=== PATIENT | female | born 1980 | race American Indian/Alaskan Native ===

== ENCOUNTER 2018-11-09 03:17 | Inpatient (IN) | payer MEDICAID ==
[2018-11-09] MEDS ORDERED: D5W IV ONE (03:36)
[2018-11-09] MEDS ORDERED: RETROVIR IV ONE (03:36)
[2018-11-09 03:37] LABS: Hematocrit 34.8 % (30.3-42.9); Mean Corpuscular HGB Conc 35 % (30-34); Mean Corpuscular Volume 91 fl (79-97); Platelet Count 118 K/mm3 (140-440); Red Blood Count 3.81 M/mm3 (3.65-5.03); Red Cell Distribution Width 15.4 % (13.2-15.2)
[2018-11-09] MEDS ORDERED: BRETHINE IVP PRN (03:38)
[2018-11-09] MEDS ORDERED: MINERAL OIL PO PRN (03:38)
[2018-11-09] MEDS ORDERED: XYLOCAINE 2% INFILTRATI ONE (03:38)
[2018-11-09] MEDS ORDERED: STADOL IV PRN (03:38)
[2018-11-09] MEDS ORDERED: SUBLIMAZE IV PRN (03:38)
[2018-11-09] MEDS ORDERED: BRETHINE SUB-Q PRN (03:38)
[2018-11-09] MEDS ORDERED: PITOCin/NS 20 UNIT/1000ML DRIP 20 UNITS/1,000 ML BAG IV SCH ×2 (04:00→18:00)
[2018-11-09] MEDS ORDERED: LACTATED RINGERS 1,000 ML IV SCH (04:00)
--- NOTE | 2018-11-09 04:05 | History and Physical Report ---
History of Present Illness Date of examination: 11/09/18 Date of admission: 11/09/18 Chief complaint: Contractions and bleeding History of present illness: 38yo G 1 P 0 0 0 0 @ 37 weeks 6 days here with c/o contractions and bleeding. She reports +FMs but denies LOF. I received a call from RN that the patient is completely dilated. Upon my arrival, moderate bloody show present. Was unable to confirm cervical dilation due to patient discomfort and cervical exam int olerance. Epidural anesthesia given and patient was confirmed to be 4cm/90%/- 2/BBOW. She is a [employer] pt who initiated care at 17 weeks gestation. 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 She denies any recent outbreak or prodromal symptoms. LABS: B+, Pap smear normal, RI, VDRL NR, HBsAg neg, HIV pos, HSV II +, MSAFP neg, Diabetes screen 113, Antibody screen pos, GC/CT/Trich neg, GBS neg. Past History Past Medical History: no pertinent history Past Surgical History: appendectomy [employer] History: herpes, HIV Family/Genetic History: none Social history: , lives with family, full code. denies: smoking, alcohol abuse, prescription drug abuse, IV drug use - Obstetrical History Expected Date of Delivery: 11/24/18 Actual Gestation: 37 Week(s) 6 Day(s) : 1 Para: 0 Hx # Term Pregnancies: 0 Number of Pregnancies: 0 Spontaneous Abortions: 0 Induced : 0 Number of Living Children: 0 Medications and Allergies Allergies Allergy/AdvReac Type Severity Reaction Status Date / Time No Known Allergies Allergy Unverified 11/09/18 03:28 Active Meds: Active Medications Butorphanol Tartrate (Stadol) 2 mg IV Q2H PRN PRN Reason: Pain , Severe (7-10) Ephedrine Sulfate (Ephedrine Sulfate) 10 mg IV Q2M PRN PRN Reason: Hypotension Fentanyl (Sublimaze) 100 mcg IV Q2H PRN PRN Reason: Labor Pain Zidovudine 165 mg/ Dextrose 116.5 mls @ 120 mls/hr IV ONCE ONE Stop: 11/09/18 04:34 Zidovudine 400 mg/ Dextrose 200 mls @ 41.25 mls/hr IV DIRECT VICKI Lactated Ringer's (Lactated Ringers) 1,000 mls @ 125 mls/hr IV DIRECT VICKI Lactated Ringer's (Lactated Ringers) 1,000 mls @ 125 mls/hr IV DIRECT VICKI Oxytocin/Sodium Chloride (Pitocin/Ns 20 Unit/1000ml Drip) 20 units in 1,000 mls @ 125 mls/hr IV DIRECT VICKI Lidocaine (Xylocaine 2%) 20 ml INFILTRATI ONCE ONE Stop: 11/09/18 03:39 Mineral Oil (Mineral Oil) 30 ml PO QHS PRN PRN Reason: Constipation Terbutaline Sulfate (Brethine) 0.25 mg SUB-Q ONCE PRN PRN Reason: Hyperstimulation/Hypertonicity Terbutaline Sulfate (Brethine) 0.25 mg IVP ONCE PRN PRN Reason: Hyperstimulation/Hypertonicity Review of Systems All systems: negative - Obstetrical FHR: auscultation normal FHR comments: baseline 130, moderate variability, 15x15 accels, no decels Uterine Contraction Monitor Mode: External Uterine Contraction Pattern: Regular Results Result Diagrams: 11/09/18 03:25 Abnormal lab results 11/09/18 Range/Units 03:25 MCHC 35 H (30-34) % RDW 15.4 H (13.2-15.2) % Plt Count 118 L (140-440) K/mm3 All other labs normal. Assessment and Plan - Patient Problems (1) 37 weeks gestation of Current Visit: Yes Status: Acute (2) Active labor at term Current Visit: Yes Status: Acute Plan to address problem: Admit to L&D with routine labor orders Expectant management Anticipate vaginal delivery (3) HIV disease affecting in third trimester Current Visit: Yes Status: Acute Plan to address problem: AZT initiated, per protocol
[2018-11-09] MEDS: RETROVIR 400 MG in D5W 160 ML IV SCH ×3 (04:56→15:16)
[2018-11-09] MEDS ORDERED: MARCAINE 0.25% INFILTRATI ONE (04:56)
[2018-11-09] MEDS ORDERED: fentaNYL-BUPIV 2 MCG/ML-0.125% 200 MCG/100 ML BAG EPIDURAL ONE (05:41)
--- NOTE | 2018-11-09 05:50 | Anesthesia Consultation ---
Anesthesia Consult and Med Hx - Airway Anesthetic Teeth Evaluation: Good ROM Head & Neck: Adequate Mental/Hyoid Distance: Adequate Mallampati Class: Class II Intubation Access Assessment: Probably Good - Pulmonary Exam CTA: Yes - Cardiac Exam Cardiac Exam: RRR - Pre-Operative Health Status ASA Pre-Surgery Classification: ASA3 Proposed Anesthetic Plan: Epidural - Pulmonary Hx Smoking: No Hx Asthma: No Hx Respiratory Symptoms: No SOB: No COPD: No Home Oxygen Therapy: No Hx Pneumonia: No Hx Sleep Apnea: No - Cardiovascular System Hx Hypertension: No Hx Coronary Artery Disease: No Hx Heart Attack/AMI: No Hx Angina: No Hx Percutaneous Transluminal Coronary Angioplasty (PTCA): No Hx Cardia Arrhythmia: No Hx Pacemaker: No Hx Internal Defibrillator: No Hx Valvular Heart Disease: No Hx Heart Murmur: No Hx Peripheral Vascular Disease: No - Central Nervous System Hx Neuromuscular Disorder: No Hx Seizures: No CVA: No Hx Back Pain: No Hx Psychiatric Problems: No - Gastrointestinal Hx Ulcer: No Hx Gastroesophageal Reflux Disease: No - Endocrine Hx Renal Disease: No Hx End Stage Renal Disease: No Hx Cirrhosis: No Hx Liver Disease: No Hx Insulin Dependent Diabetes: No Hx Non-Insulin Dependent Diabetes: No Hx Thyroid Disease: No Hx Hypothyroidism: No Hx Hyperthyroidism: No - Hematic Hx Anemia: No (HIV positive) Hx Sickle Cell Disease: No - Other Systems Hx Alcohol Use: No Hx Substance Use: No Hx Cancer: No Hx Obesity: No - Additional Comments Anesthesia Medical History Comments: Pt on antivirals
[2018-11-09] MEDS ORDERED: NARCAN 2 MG/2 ML IV PRN (05:52)
[2018-11-09] MEDS: fentaNYL-BUPIV 2 MCG/ML-0.125% 200 MCG/100 ML BAG EPIDURAL SCH ×2 (06:03→13:44)
[2018-11-09] MEDS: LACTATED RINGERS 1,000 ML IV SCH ×2 (06:09→13:43)
[2018-11-09] MEDS ORDERED: PITOCin/NS 30 UNIT/500ML 30 UNITS/500 ML BAG IV ONE (09:00)
--- NOTE | 2018-11-09 10:53 | Progress Note ---
Assessment and Plan (1) 37 weeks gestation of Current Visit: Yes Status: Acute (2) Active labor at term Current Visit: Yes Status: Acute Plan to address problem: Routine labor orders Expectant management Anticipate vaginal delivery VSS Category 1 tracing Comfortable with Epidural (3) HIV disease affecting in third trimester Current Visit: Yes Status: Acute Plan to address problem: Co-managed with [facility] and ID. Pt reports last HIV RNA viral load was "undetectable; about 4 weeksago" Truvanda & Isentress Antivirals AZT per protocol Draw HIV RNA Subjective - Subjective Date of service: 11/09/18 Principal diagnosis: IUP at 37w6d, active labor, HIV positive Interval history: See H&P Patient reports: movement normal, contractions, no loss of fluid Objective - Vital Signs Vital Signs: Vital Signs - 12hr 11/09/18 11/09/18 11/09/18 05:02 05:03 05:07 Temperature Pulse Rate 87 100 H 85 Respiratory Rate Blood Pressure 162/106 142/80 Blood Pressure [Left] O2 Sat by Pulse 100 100 Oximetry 11/09/18 11/09/18 11/09/18 05:08 05:11 05:12 Temperature Pulse Rate 88 82 87 Respiratory Rate Blood Pressure 143/76 136/69 129/70 Blood Pressure [Left] O2 Sat by Pulse 100 Oximetry 11/09/18 11/09/18 11/09/18 05:15 05:16 05:17 Temperature Pulse Rate 81 81 82 Respiratory Rate Blood Pressure 136/73 127/69 Blood Pressure [Left] O2 Sat by Pulse 100 Oximetry 11/09/18 11/09/18 11/09/18 05:18 05:22 05:23 Temperature Pulse Rate 78 88 96 H Respiratory Rate Blood Pressure 126/70 140/68 144/65 Blood Pressure [Left] O2 Sat by Pulse 100 Oximetry 11/09/18 11/09/18 11/09/18 05:27 05:29 05:32 Temperature Pulse Rate 95 H 90 85 Respiratory Rate Blood Pressure 118/58 Blood Pressure [Left] O2 Sat by Pulse 100 100 Oximetry 11/09/18 11/09/18 11/09/18 05:33 05:37 05:42 Temperature Pulse Rate 86 85 81 Respiratory Rate Blood Pressure 115/60 Blood Pressure [Left] O2 Sat by Pulse 100 100 Oximetry 11/09/18 11/09/18 11/09/18 05:47 05:52 05:57 Temperature Pulse Rate 81 76 89 Respiratory Rate Blood Pressure Blood Pressure [Left] O2 Sat by Pulse 99 99 100 Oximetry 11/09/18 11/09/18 11/09/18 05:59 06:02 06:06 Temperature 96.7 F L Pulse Rate 79 77 80 Respiratory 18 Rate Blood Pressure 111/59 Blood Pressure 111/59 [Left] O2 Sat by Pulse 100 100 Oximetry 11/09/18 11/09/18 11/09/18 06:07 06:12 06:17 Temperature Pulse Rate 78 81 92 H Respiratory Rate Blood Pressure Blood Pressure [Left] O2 Sat by Pulse 100 100 100 Oximetry 11/09/18 11/09/18 11/09/18 06:18 06:22 06:27 Temperature Pulse Rate 86 88 76 Respiratory Rate Blood Pressure 106/55 Blood Pressure [Left] O2 Sat by Pulse 100 100 Oximetry 11/09/18 11/09/18 11/09/18 06:32 06:33 06:37 Temperature Pulse Rate 76 72 83 Respiratory Rate Blood Pressure 100/58 Blood Pressure [Left] O2 Sat by Pulse 100 100 Oximetry 11/09/18 11/09/18 11/09/18 06:42 06:47 06:48 Temperature Pulse Rate 71 76 75 Respiratory Rate Blood Pressure 97/55 Blood Pressure [Left] O2 Sat by Pulse 100 100 Oximetry 11/09/18 11/09/18 11/09/18 06:52 06:57 07:02 Temperature Pulse Rate 71 70 74 Respiratory Rate Blood Pressure Blood Pressure [Left] O2 Sat by Pulse 100 100 100 Oximetry 11/09/18 11/09/18 11/09/18 07:04 07:07 07:12 Temperature Pulse Rate 71 75 79 Respiratory Rate Blood Pressure 98/54 Blood Pressure [Left] O2 Sat by Pulse 100 100 Oximetry 11/09/18 11/09/18 11/09/18 07:17 07:18 07:22 Temperature Pulse Rate 89 87 80 Respiratory Rate Blood Pressure 96/59 Blood Pressure [Left] O2 Sat by Pulse 100 100 Oximetry 11/09/18 11/09/18 11/09/18 07:27 07:32 07:34 Temperature Pulse Rate 86 81 95 H Respiratory Rate Blood Pressure 108/61 Blood Pressure [Left] O2 Sat by Pulse 100 100 Oximetry 04/04/2111/09/18 11/09/18 07:37 07:42 07:47 Temperature Pulse Rate 92 H 80 84 Respiratory Rate Blood Pressure Blood Pressure [Left] O2 Sat by Pulse 100 100 100 Oximetry 11/09/18 11/09/18 11/09/18 07:50 07:52 07:57 Temperature Pulse Rate 75 77 71 Respiratory Rate Blood Pressure 121/63 Blood Pressure [Left] O2 Sat by Pulse 100 100 Oximetry 11/09/18 11/09/18 11/09/18 08:02 08:03 08:07 Temperature Pulse Rate 77 75 70 Respiratory Rate Blood Pressure 110/58 Blood Pressure [Left] O2 Sat by Pulse 100 100 Oximetry 11/09/18 11/09/18 11/09/18 08:12 08:17 08:19 Temperature Pulse Rate 81 71 69 Respiratory Rate Blood Pressure 108/58 Blood Pressure [Left] O2 Sat by Pulse 100 100 Oximetry 11/09/18 11/09/18 11/09/18 08:22 08:27 08:32 Temperature Pulse Rate 75 78 79 Respiratory Rate Blood Pressure Blood Pressure [Left] O2 Sat by Pulse 100 100 100 Oximetry 11/09/18 11/09/18 11/09/18 08:33 08:37 08:40 Temperature 96.3 F L Pulse Rate 82 85 Respiratory Rate Blood Pressure 107/59 Blood Pressure [Left] O2 Sat by Pulse 100 Oximetry 11/09/18 11/09/18 11/09/18 08:42 08:47 08:49 Temperature Pulse Rate 80 74 79 Respiratory Rate Blood Pressure 140/123 Blood Pressure [Left] O2 Sat by Pulse 100 100 Oximetry 11/09/18 11/09/18 11/09/18 08:52 08:57 09:02 Temperature Pulse Rate 76 75 76 Respiratory Rate Blood Pressure Blood Pressure [Left] O2 Sat by Pulse 100 100 100 Oximetry 11/09/18 11/09/18 11/09/18 09:04 09:07 09:12 Temperature Pulse Rate 84 78 69 Respiratory Rate Blood Pressure Blood Pressure [Left] O2 Sat by Pulse 94 100 100 Oximetry 11/09/18 11/09/18 11/09/18 09:17 09:18 09:22 Temperature Pulse Rate 74 71 86 Respiratory Rate Blood Pressure 107/59 Blood Pressure [Left] O2 Sat by Pulse 100 100 Oximetry 11/09/18 11/09/18 11/09/18 09:27 09:32 09:33 Temperature Pulse Rate 86 70 71 Respiratory Rate Blood Pressure 100/54 Blood Pressure [Left] O2 Sat by Pulse 100 100 Oximetry 11/09/18 11/09/18 11/09/18 09:37 09:42 09:47 Temperature Pulse Rate 78 75 79 Respiratory Rate Blood Pressure 100/56 Blood Pressure [Left] O2 Sat by Pulse 100 100 100 Oximetry 11/09/18 11/09/18 11/09/18 09:52 09:57 09:59 Temperature Pulse Rate 75 82 Respiratory Rate Blood Pressure Blood Pressure [Left] O2 Sat by Pulse 100 100 92 Oximetry 11/09/18 11/09/18 11/09/18 10:02 10:04 10:07 Temperature Pulse Rate 78 81 83 Respiratory Rate Blood Pressure 98/51 Blood Pressure [Left] O2 Sat by Pulse 100 100 Oximetry 11/09/18 11/09/18 11/09/18 10:12 10:17 10:19 Temperature Pulse Rate 78 85 96 H Respiratory Rate Blood Pressure 100/56 Blood Pressure [Left] O2 Sat by Pulse 100 100 Oximetry 11/09/18 11/09/18 11/09/18 10:22 10:27 10:32 Temperature Pulse Rate 93 H 84 95 H Respiratory Rate Blood Pressure Blood Pressure [Left] O2 Sat by Pulse 100 100 100 Oximetry 11/09/18 11/09/18 11/09/18 10:37 10:42 10:47 Temperature Pulse Rate 77 91 H 84 Respiratory Rate Blood Pressure Blood Pressure [Left] O2 Sat by Pulse 100 100 100 Oximetry - Exam Cardiovascular: Regular rate, Normal S1, Normal S2, No murmurs Lungs: Clear to auscultation, Normal air movement Abdomen: Present: normal appearance, soft, normal bowel sounds. Absent: distention Vulva: both: normal Uterus: Present: other (Gravid) Uterine Contraction Monitor Mode: External Cervical Dilatation: 4 (Per Nurse) Cervical Effacement Percentage: 90 station: -1 Uterine Contraction Pattern: Regular Uterine Tone Measurement Phase: Resting Uterine Contraction Intensity: Moderate Extremities: normal Deep Tendon Reflex Grade: Normal +2 - Labs Labs: Abnormal Labs 11/09/18 03:25 MCHC 35 H RDW 15.4 H Plt Count 118 L Laboratory Results - last 24 hr 11/09/18 11/09/18 03:25 03:25 WBC 4.7 RBC 3.81 Hgb 12.0 Hct 34.8 MCV 91 MCH 32 MCHC 35 H RDW 15.4 H Plt Count 118 L Blood Type B POSITIVE Antibody Screen TNR MEGHANA Antibody Screen Negative
--- NOTE | 2018-11-09 12:45 | Event Note ---
Notified of patient on L&D laboring. Patient is HIV(+) with undetectable HIV RNA viral load as of 10/2018. Chart reviewed. Came to evaluate patient and doses of zidovudine ordered and given. Loading dose given Zidovudine 165mg IV x 1 and maintenance dose 41.25ml per hour maintenance dose given on previous shift. Doses verified with pharmacist, Mirela this morning. Patient is comfortable in bed having regular contractions Q 2-3 min. Vitals Vital Signs Temp 96.3 F L 11/09/18 08:40 Pulse 81 11/09/18 12:37 Resp 18 11/09/18 06:06 BP 115/57 11/09/18 12:34 Pulse Ox 100 11/09/18 12:37 FHT Category II heart tracing PE: No vulvar or vaginal vesicular lesions noted Cervix: /-1 Pitocin 3 Zidovudine infusing Epidural in place A/P (10/15/18) HIV RNA viral load not detected by [facility] (07/2018) HIV RNA viral load 3550 HIV RNA viral load drawn today HSV 2 - no lesions on physical exam Plan 1. Patient restarted on oral anti-retroviral medicine as recommended by ACOG. 2. Dosing of AZT 1mg/kg and maintenance 2mg/kg given and in progress 3. Last viral load drawn by outside clinic discussed with patient. Viral load also drawn today patient offered an elective section but declined. 4. Anticipate spontaneous vaginal delivery
[2018-11-09] MEDS ORDERED: EMTRIVA PO SCH (14:00)
[2018-11-09] MEDS ORDERED: EMTRIVA 200 MG, VIREAD 300 MG PO SCH (14:00)
[2018-11-09] MEDS: VIREAD PO SCH (14:04)
[2018-11-09] MEDS ORDERED: REGLAN ONE (15:57)
[2018-11-09] MEDS ORDERED: PEPCID IV ONE ×2 (15:58→17:31)
[2018-11-09] MEDS ORDERED: BICITRA ONE (15:58)
[2018-11-09] MEDS ORDERED: ANCEF/STERILE WATER 2 GM/20 ML 2 GM/20 ML SYRINGE IV ONE (15:59)
[2018-11-09] MEDS ORDERED: ANCEF/STERILE WATER 2 GM/20 ML IV ONE (16:01)
[2018-11-09] MEDS ORDERED: SUBLIMAZE ONE (16:09)
[2018-11-09] MEDS ORDERED: DIPRIVAN 10 MG/ML IV ONE (16:10)
[2018-11-09] MEDS ORDERED: TORADOL ONE (17:20)
[2018-11-09] MEDS ORDERED: PHENERGAN PO PRN (17:29)
[2018-11-09] MEDS ORDERED: ZOFRAN IV PRN (17:29)
[2018-11-09] MEDS ORDERED: NARCAN 0.4 MG/1 ML IV PRN (17:29)
[2018-11-09] MEDS ORDERED: DILAUDID IV PRN (17:29)
[2018-11-09] MEDS ORDERED: PHENERGAN PR PRN (17:29)
--- NOTE | 2018-11-09 17:29 | Anesthesia Day of Surgery ---
Anesthesia Day of Surgery - Day of Surgery Patient Examined: Yes Patient H&P Reviewed: Yes Patient is NPO: Yes Beta Blockers: No Cardiac Clearance: No Pulmonary Clearance: No Gerardo's Test: N/A
--- NOTE | 2018-11-09 17:29 | Post Anesthesia Evaluation ---
- Post Anesthesia Evaluation Patient Participated: Yes Airway Patent: Yes Stable Respiratory Function: Yes Nausea/Vomiting: No Temp > 96.8F: Yes Pain Manageable: Yes Adequeate Hydration: Yes Anesthesia Complications: No Block Receding Appropriately: Yes Patient on Ventilator: No
[2018-11-09] MEDS ORDERED: BICITRA PO ONE (17:31)
[2018-11-09] MEDS ORDERED: REGLAN IV ONE (17:31)
[2018-11-09] MEDS ORDERED: IBUPROFEN PO PRN (17:33)
[2018-11-09] MEDS ORDERED: LANSINOH TP PRN (17:33)
[2018-11-09] MEDS ORDERED: PERCOCET 5/325 PO PRN (17:33)
[2018-11-09] MEDS ORDERED: TUCKS PAD TP PRN (17:33)
[2018-11-09] MEDS ORDERED: TYLENOL PO PRN (17:33)
--- NOTE | 2018-11-09 17:49 | Operative Report ---
Operative Report Operative Report: DATE OF OPERATION 11/09/18 PREOP Diagnosis 1. 38 1/7 weeks gestation 2. Nonreassurring heart status 3. Category III heart tracing 4. Human immunodeficiency virus Postop Diagnosis 1. 38 1/7 weeks gestation 2. Nonreassurring heart status 3. Category III heart tracing 4. Human immunodeficiency virus 5. Small for gestational age Procedure: 1. Primary section Findings 1. Viable female in the compound presentation (hand and vertex), weighing 5lb 7oz, 2465g APGARS 8 at 1 min, 9 at 5 min 2. Nuchal cord x 1 3. Normal uterus, bilateral ovaries and tubes Surgeon 1. Judie Collado MD Anesthesia: 1. Epidural I/O: EBL: 500ml IVF 1000ml LR UOP 100ml - clear Specimens removed: 1. Placenta Complications: none Disposition: Patient taken to recovery room in stable condition INDICATIONS: The patient is a 38yo at 38 1/7weeks that was undergoing augmentation of labor. At the second state of labor she pushed for 2 hours without delivery of the vertex. bradycardia 70-90s were noted. I explained to patient I did not desire to perform an operative delivery due to risk of scalp lacerations and with risk of maternal blood transfer. Therefore due to bradycardia a recommendation of primary section was made for distress. The risks including but not limited to bleeding, infections, injury to surrounding organs, risk of blood transfusion and hysterectomy were discussed. All questions were answered and informed consent signed. PROCEDURE: The patient was taken to OR 2 in stable condition. Adequate anesthesia was achieved with epidural anesthesia. heart tones were confirmed in the OR 90s-108. A boggs catheter was placed. She wore SCDs for DVT prophylaxis. And received Ancef for infection prophylaxis. The patient was prepped and draped in the usual fashion and an additional time out was done. A Pfannestiel incision was made in the skin and carried down to the fascia. The fascia was incised and the incision extended laterally. The superior and inferior aspect of the rectus muscle was dissected off of the fascia. Entry into the peritoneum was achieved and the incision was extended cranially and caudally. The bladder blad was placed. A low-transverse incision made made in the uterus and extended laterally. membranes were ruptured, noted to be clear. The head was delivered and noted to be in compound presentation. Nuchal cord x 1 was reduced. The body delivered. Infant was bulb suctioned, cord clamped x2 and handed off to awaiting disability insurance hearing officer staff. The baby was noted to be vigorous. The was taken to the NICU for further evaluation after a short mo ther/baby bonding period. The placenta was delivered intact. Cord gasses were collected. 20 units of IV Pitocin was added to LR fluids. The uterus was cleaned of all clots. The hysterotomy was repaired with 0-Vicryl in a running, locked stitch and an imbricating layer of the same suture was used. The peritoneum and rectus muscle was re-approximated with 2-0Vicryl. Fascia was closed with 0 Vicryl. The Subcutaneous layer reapproximated with 2-0 Vicryl and the skin was then closed with 4-0 Vicryl. The patient tolerated the procedure well. All counts were correct x 3. Urine was noted to be clear at close of case. I was present and scrubbed for the entire procedure. The patient was taken to the recovery room in stable condition.
[2018-11-09] MEDS ORDERED: ANCEF/STERILE WATER 2 GM/20 ML 2 GM/20 ML SYRINGE IV NR (18:00)
[2018-11-09] MEDS ORDERED: SODIUM CHLORIDE FLUSH SYRINGE 10 ML IV NR ×2 (18:00)
[2018-11-10] MEDS: ISENTRESS PO SCH ×2 (01:24→09:40)
--- NOTE | 2018-11-10 01:56 | Event Note ---
No NSAIDs are to be administered to patient due to risk of nephrotoxicity when combined with antiretroveral therapy. Therefore Ibuprofen and Toradol have been discontinued.
[2018-11-10] MEDS: LACTATED RINGERS 1,000 ML IV SCH (05:36)
[2018-11-10] MEDS: PERCOCET 5/325 PO PRN ×3 (06:30→22:06)
[2018-11-10 08:41] LABS: Hematocrit 31.1 % (30.3-42.9)
[2018-11-10] MEDS: FEOSOL PO SCH (09:41)
[2018-11-10] MEDS: MYLICON PO PRN ×2 (09:41→15:50)
--- NOTE | 2018-11-10 10:11 | Progress Note ---
Assessment and Plan A: POD#1 HIV + P: Follow Routine PosOp Orders Continue MD macdonald of HIV Encourage increased ambulation Subjective - Subjective Date of service: 11/10/18 Principal diagnosis: IUP at 37w6d, active labor, HIV positive Patient reports: appetite normal, voiding normally, pain well controlled, ambulating normally : doing well Objective - Vital Signs Latest vital signs: Vital Signs Temp Pulse Resp BP BP Pulse Ox 11/10/18 07:47 97.1 F L 70 18 111/63 11/10/18 06:30 18 11/10/18 01:47 20 11/10/18 00:27 98.0 F 75 16 126/71 98 11/09/18 20:01 98.7 F 69 18 169/91 98 11/09/18 18:55 98.8 F 73 127/74 11/09/18 18:15 98.0 F 74 16 159/80 100 11/09/18 18:00 70 18 135/81 100 11/09/18 17:45 71 19 146/77 100 11/09/18 17:30 79 19 101/65 100 11/09/18 17:25 73 17 123/69 99 11/09/18 17:20 84 13 106/63 99 11/09/18 17:15 98.3 F 84 13 122/55 100 11/09/18 15:54 95 H 100 11/09/18 15:49 84 100 11/09/18 15:48 59 L 58 L 11/09/18 15:43 76 81 L 11/09/18 15:39 64 65 L 11/09/18 15:38 80 100 11/09/18 15:34 93 H 137/60 11/09/18 15:33 90 11/09/18 15:32 64 91 11/09/18 15:28 75 100 11/09/18 15:24 108 H 89 11/09/18 15:23 71 100 11/09/18 15:18 61 74 L 11/09/18 15:13 71 100 11/09/18 15:09 84 89 11/09/18 15:08 70 96 11/09/18 15:03 92 H 89 11/09/18 15:02 60 89 11/09/18 14:58 88 100 11/09/18 14:54 64 89 11/09/18 14:52 82 100 11/09/18 14:49 78 121/58 11/09/18 14:48 74 L 11/09/18 14:47 69 80 L 11/09/18 14:42 120 H 49 L 11/09/18 14:37 87 100 11/09/18 14:36 74 73 L 11/09/18 14:32 76 142/85 100 11/09/18 14:29 99 H 75 L 11/09/18 14:27 73 100 11/09/18 14:24 76 49 L 11/09/18 14:22 90 97 11/09/18 14:18 64 134/75 11/09/18 14:17 75 100 11/09/18 14:16 93 H 94 11/09/18 14:12 71 100 11/09/18 14:07 83 100 11/09/18 14:03 76 110/57 11/09/18 14:02 80 100 11/09/18 13:57 75 100 11/09/18 13:52 75 100 11/09/18 13:49 73 109/64 11/09/18 13:47 74 100 11/09/18 13:42 76 100 11/09/18 13:37 77 100 11/09/18 13:35 74 104/64 11/09/18 13:32 74 100 11/09/18 13:30 98.3 F 11/09/18 13:27 82 100 11/09/18 13:22 77 100 11/09/18 13:18 72 109/59 11/09/18 13:17 86 100 11/09/18 13:12 84 100 11/09/18 13:07 78 100 11/09/18 13:03 80 99/56 11/09/18 13:02 80 100 11/09/18 12:57 81 100 11/09/18 12:52 79 100 11/09/18 12:48 78 117/70 11/09/18 12:47 79 100 11/09/18 12:42 80 100 11/09/18 12:37 81 100 11/09/18 12:34 78 115/57 11/09/18 12:32 80 100 11/09/18 12:27 88 100 11/09/18 12:22 88 100 11/09/18 12:18 81 108/59 11/09/18 12:17 82 100 04/09/19 12:12 84 100 11/09/18 12:07 88 100 11/09/18 12:04 100 H 114/55 11/09/18 12:02 87 100 11/09/18 11:57 80 100 11/09/18 11:52 80 100 11/09/18 11:49 85 95/54 11/09/18 11:47 86 100 11/09/18 11:42 95 H 100 11/09/18 11:37 86 100 11/09/18 11:34 77 113/59 11/09/18 11:32 82 100 11/09/18 11:27 94 H 100 11/09/18 11:22 84 99 11/09/18 11:18 81 102/54 11/09/18 11:17 83 100 11/09/18 11:12 85 99 11/09/18 11:07 79 100 11/09/18 11:02 82 102/59 100 11/09/18 10:57 85 100 11/09/18 10:52 95 H 100 11/09/18 10:48 96 H 103/59 11/09/18 10:47 84 100 11/09/18 10:42 91 H 100 11/09/18 10:37 77 100 11/09/18 10:32 95 H 100 11/09/18 10:27 84 100 11/09/18 10:22 93 H 100 11/09/18 10:19 96 H 100/56 11/09/18 10:17 85 100 11/09/18 10:12 78 100 Intake and Output 11/09/18 11/10/18 11/10/18 22:59 06:59 14:59 Intake Total 2800 480 Output Total 1000 1600 Balance 1800 -1600 480 Intake: IV 2800 Lactated Ringers 1,000 ml 1000 @ 125 mls/hr IV DIRECT VICKI Rx#:[id number] Retrovir 400 mg In D5w 200 160 ml @ 1 MG/KG/HR 41.25 mls/hr IV DIRECT VICKI Rx#:[id number] Oral 480 Output: Urine 1000 1600 Indwelling Catheter 900 1600 Other: Total, Intake Amount 480 Total, Output Amount 900 700 Estimated Blood Loss 500 - Exam Breasts: Present: normal Cardiovascular: Present: Regular rate Lungs: Present: Clear to auscultation, Normal air movement Abdomen: Present: normal appearance, soft, normal bowel sounds Uterus: Present: normal, firm, fundal height below umbilicus Extremities: Present: normal Incision: Present: dry, dressed - Labs Labs: Abnormal lab results 11/09/18 Range/Units 16:39 POC ABG pH 7.271 L (7.35-7.45) POC ABG pCO2 54.0 H (35-45)
[2018-11-10] MEDS: MILK OF MAGNESIA PO PRN (15:50)
[2018-11-10] MEDS: VIREAD PO SCH (16:24)
[2018-11-11] MEDS: PERCOCET 5/325 PO PRN ×3 (06:24→19:51)
--- NOTE | 2018-11-11 09:59 | Progress Note ---
Assessment and Plan A: POD#2 s/p Primary c/s HIV positive; undetectable viral load; Isentress 400mg BID, Emtriva 200mg QD Stable Pain well controlled P: Follow Routine Post Op Orders Encourage increased ambulation Discharge home in am Continue care with Infectious Disease Subjective - Subjective Date of service: 11/11/18 Principal diagnosis: POD#2 s/p Primary c/s, HIV positive (RNA viral load; undetectable) Interval history: See H&P and delivery note Patient reports: appetite normal, voiding normally, pain well controlled, flatus, ambulating normally, no bowel movement Varnell: doing well, bottle feeding Objective - Vital Signs Latest vital signs: Vital Signs Temp Pulse Resp BP 11/11/18 08:09 98.3 F 73 18 139/86 11/11/18 06:24 18 11/10/18 22:06 18 11/10/18 15:19 98.9 F 71 18 129/75 11/10/18 12:32 98.2 F 72 18 146/82 Intake and Output 11/10/18 11/11/18 11/11/18 23:59 07:59 15:59 Intake Total 480 Balance 480 Intake: Oral 480 Other: Total, Intake Amount 480 - Exam Breasts: Present: normal Cardiovascular: Present: Regular rate, Normal S1, Normal S2, No murmurs Lungs: Present: Clear to auscultation, Normal air movement Abdomen: Present: normal appearance, soft, tenderness (as expected post-op), normal bowel sounds. Absent: distention Vulva: both: normal Uterus: Present: firm, fundal height below umbilicus (-1) Extremities: Present: normal Incision: Present: normal, dry, intact, dressed (Pressure dressing CDI)
--- NOTE | 2018-11-11 10:03 | Discharge Summary ---
Providers - Providers Date of Admission: 11/09/18 05:48 Date of discharge: 11/12/18 Attending physician: INDIANA RICK MD Primary care physician: INDIANA RICK MD Hospitalization Reason for admission: active labor, IUP at term Delivery: Procedure: primary low transverse Procedure details: See H&P and delivery note Incision: normal, dry, intact, dressed (CDI) Other procedures: none complications: none Discharge diagnosis: IUP at term delivered Mobile baby: male Condition at discharge: Good Disposition: [id number] TO HOME OR SELFCARE Plan - Discharge Medications Prescriptions: Ferrous Sulfate [Feosol 325 MG tab] 325 mg PO BID 30 Days #60 tablet oxyCODONE /ACETAMINOPHEN [Percocet 5/325] 1 tab PO Q4HR PRN 14 Days #30 tab PRN Reason: Pain , Severe (7-10) - Provider Discharge Summary Activity: routine, no sex for 6 weeks, no heavy lifting 4 weeks, no strenuous exercise Diet: routine Instructions: routine Additional instructions: [] Smoking cessation referral if applicable(refer to patient education folder for contact #) [] Refer to [facility] Booklet Call your doctor immediately for: * Fever > 100.5 * Heavy vaginal bleeding ( >1 pad per hour) * Severe persistent headache * Shortness of breath * Reddened, hot, painful area to leg or breast * Drainage or odor from incision. * Keep incision clean and dry at all times and follow doctor's instructions regarding bathing/showering Continue medications (Isentress 400mg BID, Emitriva 200mg QD). Follow up with Infectious Disease for continue management of HIV. Return to the office in 1 week for incision check. - Follow up plan Follow up: INDIANA RICK MD [Primary Care Provider] - 7 Days
[2018-11-11] MEDS: MYLICON PO PRN (11:21)
[2018-11-11] MEDS: TRUVADA PO SCH (11:23)
[2018-11-11] MEDS: ISENTRESS PO SCH ×2 (11:24→22:29)
[2018-11-11] MEDS: VIREAD PO SCH (11:31)
[2018-11-12] MEDS: PERCOCET 5/325 PO PRN (05:07)
[2018-11-12] MEDS: MILK OF MAGNESIA PO PRN (05:13)
[2018-11-12 09:30] LABS: HIV-1 RNA QN PCR <1.30 Log cps/mL; HIV-1 RNA QN PCR <20 Copies/mL
[2018-11-12] MEDS ORDERED: DULCOLAX PR PRN (10:00)
[2018-11-12] MEDS: TRUVADA PO SCH (10:33)
[2018-11-12] MEDS: ISENTRESS PO SCH (10:33)
[2018-11-12] MEDS: MYLICON PO PRN (10:33)
[2018-11-12] MEDS: FEOSOL PO SCH (10:33)
--- NOTE | 2018-11-12 11:11 | Progress Note ---
Assessment and Plan - Patient Problems (1) S/P primary low transverse Status: Acute Plan to address problem: POD 3 - complicated by abdominal distension post-delivery Continue routine postop orders Continue ambulating (2) HIV disease affecting in third trimester Status: Acute Plan to address problem: Undetectable viral load Continue MD management of HIV (3) Abdominal distension Status: Acute Plan to address problem: Patient hasn't passed gas or had a bowel movement post-delivery - on Simethicone and ambulating as directed Regular diet switched to liquids Dulcolax suppository ordered Will consult MD about plan of care Subjective - Subjective Date of service: 11/12/18 Principal diagnosis: POD#3, s/p Primary LTCS, HIV positive Interval history: see H&P, OB Progress note, Event note, Operative Report and PP/ENROLLMENT COUNSELOR Progress Notes Patient reports: appetite normal, voiding normally, pain well controlled, ambulating normally, no dizzy ambulation, no flatus, no bowel movement : doing well, bottle feeding Objective - Vital Signs Latest vital signs: Vital Signs Temp Pulse Resp BP BP Pulse Ox 11/12/18 09:32 129/68 11/12/18 08:51 98.0 F 70 16 162/94 100 11/12/18 05:07 18 11/12/18 00:00 98.6 F 68 18 136/75 11/11/18 19:51 18 11/11/18 18:22 98.9 F 77 20 127/82 100 11/11/18 11:17 18 Intake and Output 11/11/18 11/12/18 11/12/18 23:59 07:59 15:59 Intake Total 400 440 Balance 400 440 Intake: Oral 400 440 Other: Total, Intake Amount 200 200 # Voids Indwelling Catheter 1 1 - Exam Cardiovascular: Present: Regular rate Lungs: Present: Clear to auscultation Abdomen: Present: distention, guarding Vulva: both: normal Uterus: Present: other (not evaluated because pt hasn't passed gas post delivery. Abdomen distended & tender) Extremities: Present: normal Incision: Present: normal, dry, intact, other (steri strips in place) Comments: scant lochia
--- NOTE | 2018-11-12 14:04 | Event Note ---
Date: 11/12/18 After taking Dulcolax suppository, patient has had a bowel movement, reports flatus and no longer feeling bloated. Abdomen soft on palpation, nontender. Fundus F/ML/U-1. She requests to be discharged today. Wound care instructions given. Patient instructed to continue taking her medications. Was seen by Case Management and referred to [facility]. Patient advised she will be contacted by the clinic for an appointment. Patient instructed to return to [facility] in 1 week for incision check.
[2018-11-12 17:00] VITALS: BP 133/70
== END 2018-11-12 18:10 | disposition home or self-care (01) | DRG 765 ==
LOC: TRG 03:17 → LD 03:20 → TRG 05:46 → LD 05:48 → OB 20:15 → UNDODISIN 11-11 17:55
PROVIDERS: ADMIT Obstetrics & Gynecology; ATTEND Obstetrics & Gynecology
PROC: 10D00Z1 Extraction of Products of Conception, Low, Open Approach (ICD-10-PCS; principal; 2018-11-09)
DX: O76 Abnormality in fetal heart rate and rhythm complicating labor and delivery (principal); B20 Human immunodeficiency virus [HIV] disease; O36.5930 Maternal care for other known or suspected poor fetal growth, third trimester, not applicable or unspecified; Z37.0 Single live birth; Z90.49 Acquired absence of other specified parts of digestive tract; O69.81X0 Labor and delivery complicated by cord around neck, without compression, not applicable or unspecified; Z3A.37 37 weeks gestation of pregnancy; O98.72 Human immunodeficiency virus [HIV] disease complicating childbirth
CPT/HCPCS: 36415; 82803; 85014; 85018; 85027; 86592; 86850; 86900; 86901; 87536; G0378; J0690; J1885; J2590; J2704; J2765; J3010; J3485; J7120

== ENCOUNTER 2020-09-15 04:07 | Emergency (ER) | payer MEDICAID, OTHER ==
[2020-09-15 06:00] LABS: Basophils % (Auto) 0.3 % (0.0-1.8); Eosinophils # (Auto) 0.2 K/mm3 (0.0-0.4); Hematocrit 37.8 % (30.3-42.9); Hemoglobin 12.6 gm/dl (10.1-14.3); Lymphocytes # (Auto) 1.4 K/mm3 (1.2-5.4); Lymphocytes % (Auto) 27.8 % (13.4-35.0); Mean Corpuscular HGB Conc 33 % (30-34); Mean Corpuscular Volume 90 fl (79-97); Monocytes # (Auto) 0.3 K/mm3 (0.0-0.8); Monocytes % (Auto) 6.5 % (0.0-7.3); Platelet Count 168 K/mm3 (140-440); Red Blood Count 4.19 M/mm3 (3.65-5.03); Red Cell Distribution Width 13.5 % (13.2-15.2)
[2020-09-15 06:56] LABS: Bilirubin,Urine NEG (Negative); Blood,Urine LG (Negative); Color,Urine Red (Yellow); Mucus,Urine 1+ /HPF; Urobilinogen,Urine < 2.0 mg/dL (<2.0)
[2020-09-15 07:08] LABS: RBC,Urine > 182.0 /HPF (0.0-6.0); WBC,Urine > 182.0 /HPF (0.0-6.0)
--- NOTE | 2020-09-15 07:43 | Emergency Department Report ---
HPI - General Chief Complaint: Vaginal Bleeding Time Seen by Provider: 09/15/20 07:35 - HPI HPI: This is a 39-year-old female presents to the emergency department with complaint of a 3 to 4-day history of some vaginal bleeding and the patient is also started to have some abdominal/pelvic cramping since last night. Initially the vaginal bleeding was spotting but has steadily increased in intensity. The patient says that she is currently using about 3 pads per day. She took some Tylenol for the cramping last night which she said did provide some relief. She says that she is currently about 11 weeks . With this she is G2, P1 with 1 live child. [facility] with [facility] RUBBER PRODUCTION MACHINE OPERATOR. She has a past medical history of HIV. ED Past Medical Hx - Past Medical History Previous Medical History?: Yes Hx Hypertension: No Hx Heart Attack/AMI: No Hx Congestive Heart Failure: No Hx Diabetes: No Hx Deep Vein Thrombosis: No Hx Liver Disease: No Hx Renal Disease: No Hx Sickle Cell Disease: No Hx Seizures: No Hx Asthma: No Hx COPD: No Hx HIV: Yes - Surgical History Past Surgical History?: No Hx Pacemaker: No Hx Internal Defibrillator: No - Social History Smoking Status: Never Smoker Substance Use Type: None - Medications Home Medications: Home Medications Medication Instructions Recorded Confirmed Last Taken Type Ferrous Sulfate [Feosol 325 MG tab] 325 mg PO BID 30 Days #60 tablet 11/09/18 Unknown Rx oxyCODONE /ACETAMINOPHEN [Percocet 1 tab PO Q4HR PRN 14 Days #30 tab 11/09/18 Unknown Rx 5/325] Acetaminophen [Tylenol] 650 mg PO Q6H PRN #20 capsule 09/15/20 Unknown Rx Nitrofurantoin [place]/M-Cryst 100 mg PO Q12HR #14 capsule 09/15/20 Unknown Rx [Macrobid CAP] ED Review of Systems ROS: Stated complaint: 11WKS ;VAGINAL BLEEDING Other details as noted in HPI Comment: All other systems reviewed and negative Constitutional: denies: chills, fever Eyes: denies: eye pain, vision change ENT: denies: ear pain, throat pain Respiratory: denies: cough, shortness of breath Cardiovascular: denies: chest pain, palpitations Gastrointestinal: denies: nausea, vomiting Genitourinary: other (Pelvic cramping, vaginal bleeding) Musculoskeletal: denies: back pain, arthralgia Skin: denies: rash, lesions Neurological: denies: headache, weakness Physical Exam - Physical Exam Vital Signs: Vital Signs 09/15/20 09/15/20 05:02 05:07 Temperature 98.0 F Pulse Rate 69 Respiratory 16 Rate Blood Pressure 102/63 O2 Sat by Pulse 100 Oximetry Physical Exam: GENERAL: The patient is well-developed well-nourished. HENT: Normocephalic. Atraumatic. Patient has moist mucous membranes. EYES: Extraocular motions are intact. NECK: Supple. Trachea is midline. CHEST/LUNGS: Clear to auscultation. There is no respiratory distress noted. HEART/CARDIOVASCULAR: Regular. There is no tachycardia. There is no murmur. ABDOMEN: Abdomen is soft, nontender. Patient has normal bowel sounds. SKIN: Skin is warm and dry. NEURO: The patient is awake, alert, and oriented. The patient is cooperative. The patient has no focal neurologic deficits. Normal speech. MUSCULOSKELETAL: There is no tenderness or deformity. There is no limitation range of motion. ED Course Vital Signs 09/15/20 09/15/20 05:02 05:07 Temperature 98.0 F Pulse Rate 69 Respiratory 16 Rate Blood Pressure 102/63 O2 Sat by Pulse 100 Oximetry - Consultations Consultation #1: 09/15/20 08:28 I spoke to the RUBBER PRODUCTION MACHINE OPERATOR on-call for [facility], Dr. Green, in regards to the patient's presentation and the ultrasound findings of a thickened endometrium but nonvisualization of the left ovary. He has requested a transvaginal ultrasound to make sure there is no signs of a left-sided ectopic . If it is visualized and this is a miscarriage, the patient can follow-up outpatient. ED Medical Decision Making - Lab Data Result diagrams: 09/15/20 05:20 Lab Results 09/15/20 09/15/20 09/15/20 Range/Units 05:12 05:20 05:20 WBC 5.2 (4.5-11.0) K/mm3 RBC 4.19 (3.65-5.03) M/mm3 Hgb 12.6 (10.1-14.3) gm/dl Hct 37.8 (30.3-42.9) % MCV 90 (79-97) fl MCH 30 (28-32) pg MCHC 33 (30-34) % RDW 13.5 (13.2-15.2) % Plt Count 168 (140-440) K/mm3 Lymph % (Auto) 27.8 (13.4-35.0) % [place] % (Auto) 6.5 (0.0-7.3) % Eos % (Auto) 3.0 (0.0-4.3) % Baso % (Auto) 0.3 (0.0-1.8) % Lymph # (Auto) 1.4 (1.2-5.4) K/mm3 [place] # (Auto) 0.3 (0.0-0.8) K/mm3 Eos # (Auto) 0.2 (0.0-0.4) K/mm3 Baso # (Auto) 0.0 (0.0-0.1) K/mm3 Seg Neutrophils % 62.4 (40.0-70.0) % Seg Neutrophils # 3.3 (1.8-7.7) K/mm3 HCG, Quant 4389 H (0-4) mIU/mL Urine Color Red (Yellow) Urine Turbidity Cloudy (Clear) Urine pH 5.0 (5.0-7.0) Ur Specific [place] 1.024 (1.003-1.030) Urine Protein 100 mg/dl (Negative) mg/dL Urine Glucose (UA) Neg (Negative) mg/dL Urine Ketones Neg (Negative) mg/dL Urine Blood Lg (Negative) Urine Nitrite Neg (Negative) Urine Bilirubin Neg (Negative) Urine Urobilinogen < 2.0 (<2.0) mg/dL Ur Leukocyte Esterase Sm (Negative) Urine WBC (Auto) > 182.0 H (0.0-6.0) /HPF Urine RBC (Auto) > 182.0 (0.0-6.0) /HPF U Epithel Cells (Auto) 7.0 (0-13.0) /HPF Urine WBC Clumps 3+ /HPF Urine Mucus 1+ /HPF Urine Yeast (Budding) 1+ /HPF Blood Type 09/15/20 Range/Units 05:30 WBC (4.5-11.0) K/mm3 RBC (3.65-5.03) M/mm3 Hgb (10.1-14.3) gm/dl Hct (30.3-42.9) % MCV (79-97) fl MCH (28-32) pg MCHC (30-34) % RDW (13.2-15.2) % Plt Count (140-440) K/mm3 Lymph % (Auto) (13.4-35.0) % [place] % (Auto) (0.0-7.3) % Eos % (Auto) (0.0-4.3) % Baso % (Auto) (0.0-1.8) % Lymph # (Auto) (1.2-5.4) K/mm3 [place] # (Auto) (0.0-0.8) K/mm3 Eos # (Auto) (0.0-0.4) K/mm3 Baso # (Auto) (0.0-0.1) K/mm3 Seg Neutrophils % (40.0-70.0) % Seg Neutrophils # (1.8-7.7) K/mm3 HCG, Quant (0-4) mIU/mL Urine Color (Yellow) Urine Turbidity (Clear) Urine pH (5.0-7.0) Ur Specific [place] (1.003-1.030) Urine Protein (Negative) mg/dL Urine Glucose (UA) (Negative) mg/dL Urine Ketones (Negative) mg/dL Urine Blood (Negative) Urine Nitrite (Negative) Urine Bilirubin (Negative) Urine Urobilinogen (<2.0) mg/dL Ur Leukocyte Esterase (Negative) Urine WBC (Auto) (0.0-6.0) /HPF Urine RBC (Auto) (0.0-6.0) /HPF U Epithel Cells (Auto) (0-13.0) /HPF Urine WBC Clumps /HPF Urine Mucus /HPF Urine Yeast (Budding) /HPF Blood Type B POSITIVE - Radiology Data Radiology results: report reviewed ULTRASOUND OBSTETRIC INDICATION / CLINICAL INFORMATION: vaginal bleeding. TECHNIQUE: Transabdominal. COMPARISON: None available. FINDINGS: No IUP. Thickened heterogeneous endometrium measuring 1.5 cm likely secondary to recent miscarriage ADNEXA: Simple 2.2 cm right ovarian follicular cyst. Left ovary not visualized. FREE FLUID: None. ADDITIONAL FINDINGS: None. IMPRESSION: 1. Thickened heterogeneous endometrium likely secondary to recent miscarriage. No IUP. 2 simple 2.2 cm right ovarian follicular cyst 3. Left ovary not visualized ULTRASOUND OBSTETRIC INDICATION: Possible miscarriage. Left ovary not seen on prior transabdominal pelvic ultrasound. TECHNIQUE: Transvaginal. COMPARISON: Transabdominal pelvic ultrasound performed earlier today. FINDINGS: GESTATIONAL SAC: None seen. YOLK SAC: None seen. EMBRYO/FETUS: None seen. UTERUS/ADNEXA: Similarly thickened, heterogeneous endometrium without increased color flow. No significant abnormality of the ovaries. FREE FLUID: None. ADDITIONAL FINDINGS: None. IMPRESSION: 1. No sonographic visualization of an intrauterine or ectopic . 2. Endometrial thickening and heterogeneity may represent blood products related to miscarriage. Please correlate with the clinical findings. - Medical Decision Making This patient presents with a 3 to 4-day history of some vaginal bleeding and a 1 day history of some abdominal and pelvic cramping. The patient had told me that she has not yet had any ultrasounds done but did have previous follow-up with [facility] RUBBER PRODUCTION MACHINE OPERATOR. Her beta-hCG today is about 4400 which appears to be very low in comparison to the 11 weeks of gestation that the patient says she is currently. Hemoglobin is about 12.5 and therefore the patient does not appear to require any transfusion. Urinalysis shows a urinary tract infection and some hematuria. However, the hematuria is most likely secondary to the vaginal bleeding. Initially a transabdominal ultrasound was done that appears to show a spontaneous miscarriage with some possible blood products in the uterus, but wit hout retained products of conception. The transabdominal ultrasound was read as having nonvisualization of the left ovary. After talking to the RUBBER PRODUCTION MACHINE OPERATOR on-call for [facility], the patient was then given a transvaginal ultrasound which she was able to visualize the left ovary and tube and did not show any signs of ectopic . This all appears consistent with a spontaneous miscarriage. The patient will follow up with [facility] RUBBER PRODUCTION MACHINE OPERATOR in the next few days. She has been placed on Macrobid for the urinary tract infection. She will return to the emergency department with any worsening of her symptoms or with any acute distress. Critical Care Time: No Critical care attestation.: If time is entered above; I have spent that time in minutes in the direct care of this critically ill patient, excluding procedure time. ED Disposition Clinical Impression: Spontaneous miscarriage, History of HIV infection UTI (urinary tract infection) Qualifiers: Urinary tract infection type: acute cystitis Hematuria presence: with hematuria Qualified Code(s): N30.01 - Acute cystitis with hematuria Disposition: TO HOME OR SELFCARE Is pt being admited?: No Condition: Stable Instructions: Urinary Tract Infection, Adult, Miscarriage Additional Instructions: Please follow-up with your RUBBER PRODUCTION MACHINE OPERATOR on Thursday. Return to the emergency with any worsening of your symptoms, including increased pelvic pain or vaginal bleeding, or with any acute distress. Take the medications as prescribed. Prescriptions: Nitrofurantoin [place]/M-Cryst [Macrobid CAP] 100 mg PO Q12HR #14 capsule Acetaminophen [Tylenol] 650 mg PO Q6H PRN #20 capsule PRN Reason: Pain , Severe (7-10) Referrals: [facility] [Provider Group] - 2-3 Days Time of Disposition: 08:53
--- NOTE | 2020-09-15 08:05 | Ultrasound Report ---
ULTRASOUND OBSTETRIC INDICATION / CLINICAL INFORMATION: vaginal bleeding. TECHNIQUE: Transabdominal. COMPARISON: None available. FINDINGS: No IUP. Thickened heterogeneous endometrium measuring 1.5 cm likely secondary to recent miscarriage ADNEXA: Simple 2.2 cm right ovarian follicular cyst. Left ovary not visualized. FREE FLUID: None. ADDITIONAL FINDINGS: None. IMPRESSION: 1. Thickened heterogeneous endometrium likely secondary to recent miscarriage. No IUP. 2 simple 2.2 cm right ovarian follicular cyst 3. Left ovary not visualized Signer Name: Lux Carver MD Signed: 09/15/2020 8:00 AM Workstation Name: [id number]
[2020-09-15] MEDS ORDERED: NITROFURANTOIN MONOHYD/M-CRYST 100 MG CAP PO ONE (08:21)
[2020-09-15 10:00] VITALS: BP 110/72
--- NOTE | 2020-09-15 11:28 | Ultrasound Report ---
ULTRASOUND OBSTETRIC INDICATION: Possible miscarriage. Left ovary not seen on prior transabdominal pelvic ultrasound. TECHNIQUE: Transvaginal. COMPARISON: Transabdominal pelvic ultrasound performed earlier today. FINDINGS: GESTATIONAL SAC: None seen. YOLK SAC: None seen. EMBRYO/FETUS: None seen. UTERUS/ADNEXA: Similarly thickened, heterogeneous endometrium without increased color flow. No signif icant abnormality of the ovaries. FREE FLUID: None. ADDITIONAL FINDINGS: None. IMPRESSION: 1. No sonographic visualization of an intrauterine or ectopic . 2. Endometrial thickening and heterogeneity may represent blood products related to miscarriage. Plea se correlate with the clinical findings. Signer Name: Emeterio Guerra MD Signed: 09/15/2020 11:23 AM Workstation Name: [id number]
== END 2020-09-15 09:20 | disposition home or self-care (01) ==
LOC: ED 04:07
DX: O03.9 Complete or unspecified spontaneous abortion without complication (principal); O23.41 Unspecified infection of urinary tract in pregnancy, first trimester; Z3A.11 11 weeks gestation of pregnancy; Z79.899 Other long term (current) drug therapy; Z21 Asymptomatic human immunodeficiency virus [HIV] infection status
CPT/HCPCS: 36415; 76801; 76817; 81001; 84702; 85025; 86900; 86901